=== PATIENT | male | born 1990 | race African-American/Black ===

== ENCOUNTER 2019-04-18 16:18 | Outpatient (CLI) | payer OTHER ==
--- NOTE | 2019-04-18 16:42 | RAD ---
Exam:3 views left foot HISTORY: Pain. Symptoms x3 weeks. COMPARISON: None FINDINGS: Lisfranc alignment is maintained. Joint spaces are preserved. No erosive or destructive nicole nges. No fracture, cortical irregularity or periosteal reaction. IMPRESSION: Unremarkable 3 views left foot.
== END 2019-04-18 16:19 | disposition home or self-care (01) ==
LOC: SCSRAD 16:18
PROVIDERS: ATTEND Nurse Practitioner Family
DX: M79.672 Pain in left foot (principal)